=== PATIENT | female | born 1995 | race Caucasian/White ===

== ENCOUNTER 2016-05-18 16:47 | Emergency (ER) | payer OTHER | END 2016-05-18 18:32 | disposition home or self-care (01) | LOC: ER 16:47 | DX: R10.13 Epigastric pain (principal); R11.2 Nausea with vomiting, unspecified; R19.7 Diarrhea, unspecified; Z90.49 Acquired absence of other specified parts of digestive tract | CPT/HCPCS: 36415; 96361; 96374; 96375; Q9967 ==